=== PATIENT | male | born 1965 | race Caucasian/White ===

== ENCOUNTER 2020-10-31 21:23 | Emergency (ER) | payer OTHER ==
[2020-10-31 22:23] LABS: Basophils % 0.5 % (0-1.3); Lymphocytes % 21.3 % (15.3-44.8); MPV 9.1 fL (7.6-11.3); RBC Red Blood Cell Count 4.48 M/uL (4.33-5.43)
[2020-10-31] MEDS ORDERED: NA CHLORIDE 0.9% 1,000 ML ONE (22:24)
[2020-10-31] MEDS ORDERED: MORPHINE 4 MG/ML SYR ONE (22:24)
[2020-10-31] MEDS ORDERED: ONDANSETRON 4 MG/2 ML VIAL ONE (22:24)
[2020-10-31 22:27] LABS: Urine Blood 2+ (Negative); Urine Glucose Negative (Negative); Urine Protein Negative (Negative); Urine Specific Gravity >=1.030 (1.005-1.030); Urine pH 5.5 (5.0-7.0)
[2020-10-31 22:45] LABS: Albumin 3.8 g/dL (3.4-5.0); Bilirubin Direct 0.1 mg/dL (0-0.2); Bilirubin Total 0.5 mg/dL (0.2-1.0); Potassium 3.7 mmol/L (3.5-5.1)
--- NOTE | 2020-11-01 00:11 | EDPHYS ---
Physician Documentation [facility] Name: Raad Araiza Age: 55 yrs Sex: Male : 1965 Arrival Date: 10/31/2020 Time: 21:24 Bed 14 Private MD: ED Physician Tommy Arechiga HPI: 10/31 22:38 This 55 yrs old Male presents to ER via Ambulatory with complaints of Back mh7 Pain. 22:38 The patient complains of pain in the left flank. The pain radiates to the left lower mh7 abdomen. Onset: The symptoms/episode began/occurred today, at 17:30. Modifying factors: The symptoms are alleviated by nothing. the symptoms are aggravated by nothing. Associated signs and symptoms: Pertinent positives: nausea, Pertinent negatives: diarrhea, dizziness, dysuria, fever, urinary frequency, headache, hematuria, pain radiating to the lower extremities, vomiting. Severity of pain: At its worst the pain was moderate today, in the emergency department the pain has improved moderately. Historical: - Allergies: 21:42 No Known Allergies; ea - PSHx: 21:42 Cholecystectomy; ea - Immunization history:: Adult Immunizations not immunized. - Social history:: Smoking status: Patient denies any tobacco usage or history of. ROS: 22:38 Constitutional: Negative for fever, chills, and weight loss, Eyes: Negative for injury, mh7 pain, redness, and discharge, ENT: Negative for injury, pain, and discharge, Neck: Negative for injury, pain, and swelling, Cardiovascular: Negative for chest pain, palpitations, and edema, Respiratory: Negative for shortness of breath, cough, wheezing, and pleuritic chest pain, : Negative for injury, bleeding, discharge, and swelling, MS/Extremity: Negative for injury and deformity, Skin: Negative for injury, rash, and discoloration, Neuro: Negative for headache, weakness, numbness, tingling, and seizure, Psych: Negative for depression, anxiety, suicide ideation, homicidal ideation, and hallucinations, Allergy/Immunology: Negative for hives, rash, and allergies, Endocrine: Negative for neck swelling, polydipsia, polyuria, polyphagia, and marked weight changes, Hematologic/Lymphatic: Negative for swollen nodes, abnormal bleeding, and unusual bruising. Exam: 22:38 Constitutional: This is a well developed, well nourished patient who is awake, alert, mh7 and in no acute distress. Head/Face: Normocephalic, atraumatic. Eyes: Pupils equal round and reactive to light, extra-ocular motions intact. Lids and lashes normal. Conjunctiva and sclera are non-icteric and not injected. Cornea within normal limits. Periorbital areas with no swelling, redness, or edema. Neck: Trachea midline, no thyromegaly or masses palpated, and no cervical lymphadenopathy. Supple, full range of motion without nuchal rigidity, or vertebral point tenderness. No Meningismus. Chest/axilla: Normal chest wall appearance and motion. Nontender with no deformity. No lesions are appreciated. Cardiovascular: Regular rate and rhythm with a normal S1 and S2. No gallops, murmurs, or rubs. Normal PMI, no JVD. No pulse deficits. Respiratory: Lungs have equal breath sounds bilaterally, clear to auscultation and percussion. No rales, rhonchi or wheezes noted. No increased work of breathing, no retractions or nasal flaring. 22:38 Skin: Warm, dry with normal turgor. Normal color with no rashes, no lesions, and no evidence of cellulitis. MS/ Extremity: Pulses equal, no cyanosis. Neurovascular intact. Full, normal range of motion. Neuro: Awake and alert, GCS 15, oriented to person, place, time, and situation. Cranial nerves II-XII grossly intact. Motor strength 5/5 in all extremities. Sensory grossly intact. Cerebellar exam normal. Normal gait. Psych: Awake, alert, with orientation to person, place and time. Behavior, mood, and affect are within normal limits. 22:38 Abdomen/GI: Inspection: abdomen appears normal, Bowel sounds: normal, in all quadrants, Palpation: mild abdominal tenderness, in the left lower quadrant, mass, is not appreciated, rebound tenderness, is not appreciated, voluntary guarding, is not appreciated, involuntary guarding, is not appreciated, no appreciated organomegaly, Rectal exam: the exam is deferred, because of patient request, Indicators: McBurney's point is not tender, Yarbrough's sign is negative, Rovsing's sign is negative, Obturator sign is negative, Psoas sign is negative, Liver: no appreciated palpable abnormalities, Hernia: not appreciated. 22:38 Back: ROM is normal, normal spinal alignment noted, CVA tenderness, that is mild, is noted on the left, vertebral tenderness, is not appreciated, muscle spasm, is not present. Vital Signs: 21:39 BP 144 / 82; Pulse 81; Resp 18; Temp 97.5; Pulse Ox 98% ; Weight 104.33 kg; Height 6 ea ft. (182.88 cm); Pain 8/10; 11/01 00:15 BP 132 / 60; Pulse 78; Resp 18; Temp 97.8; Pulse Ox 98% ; ea 10/31 21:39 Body Mass Index 31.19 (104.33 kg, 182.88 cm) ea MDM: 00:08 Differential diagnosis: nephrolithiasis, pyelonephritis, UTI, diverticulitis. Data [facility] reviewed: vital signs, nurses notes, old medical records, lab test result(s), CBC, electrolytes, urinalysis, radiologic studies, CT scan. Data interpreted: Pulse oximetry: on room air is 98 %. Interpretation: normal. Counseling: I had a detailed discussion with the patient and/or guardian regarding: the historical points, exam findings, and any diagnostic results supporting the discharge/admit diagnosis, the presence of at least one elevated blood pressure reading (>120/80) during this emergency department visit, lab results, radiology results, the need for outpatient follow up, a urologist, to return to the emergency department if symptoms worsen or persist or if there are any questions or concerns that arise at home. Response to treatment: the patient's symptoms have resolved after treatment, the patient's blood pressure is in an acceptable range, mental status has returned to baseline, the patient no longer shows bradycardia, the patient is not short of breath, the patient is not tachycardic, the patient's pain is gone, the patient's temperature has normalized. 00:10 Patient medically screened. [facility] 10/31 22:02 Order name: Basic Metabolic Panel; Complete Time: 23:15 [facility] 10/31 22:02 Order name: CBC with Diff 7 10/31 22:02 Order name: Hepatic Function; Complete Time: 23:15 7 10/31 22:02 Order name: Lipase; Complete Time: 23:15 [facility] 10/31 22:24 Order name: CBC with Automated Diff EDMS 04/30 22:27 Order name: Urine Dipstick-Ancillary; Complete Time: 23:15 [facility] 10/31 22:02 Order name: IV Saline Lock; Complete Time: 22:15 [facility] 10/31 22:02 Order name: Labs collected and sent; Complete Time: 22:15 [facility] 10/31 22:02 Order name: Urine Dipstick-Ancillary (obtain specimen); Complete Time: 22:36 [facility] 10/31 22:02 Order name: CT Stone Protocol [facility] Administered Medications: 10/31 22:15 Drug: NS 0.9% 1000 ml Route: IV; Rate: 1000 ml; Site: right antecubital; ea 23:23 Follow up: Response: No adverse reaction; IV Status: Completed infusion; IV Intake: ea 1000ml 22:15 Drug: morphine 4 mg Route: IVP; Site: right antecubital; ea 23:23 Follow up: Response: No adverse reaction; Pain is decreased ea 22:15 Drug: Zofran (Ondansetron) 4 mg Route: IVP; Site: right antecubital; ea 23:23 Follow up: Response: No adverse reaction ea Disposition: 11/01/20 00:10 Discharged to Home. Impression: Ureterolithiasis. - Condition is Stable. - Discharge Instructions: Kidney Stones, Itpn-[id number]. - Prescriptions for Zofran ODT 4 mg Oral tablet,disintegrating - place 1 tablet by TRANSLINGUAL route every 8 hours As needed; 10 tablet. ketorolac 10 mg Oral tablet - take 1 tablet by ORAL route every 8 hours As needed not to exceed 40 mg in 24hrs; 15 tablet. Tylenol- Codeine #3 300-30 mg Oral Tablet - take 2 tablets by ORAL route every 6 hours As needed; 20 tablet. Flomax 0.4 mg Oral Capsule, Sust. Release 24 hr - take 1 capsule by ORAL route once daily 1/2 hour following the same meal each day; 10 capsule. - Medication Reconciliation Form, Thank You Letter, Antibiotic Education, Prescription Opioid Use form. - Follow up: Private Physician; When: 1 - 2 days; Reason: Worsening of condition, Recheck today's complaints, Continuance of care, Re-evaluation by your physician. Follow up: Paul Vergara MD; When: 1 - 2 days; Reason: Worsening of condition, Recheck today's complaints. - Problem is new. - Symptoms have improved. Signatures: Dispatcher [employer] Liliam Cuevas RN RN ea Holmes, Maurice, MD MD mh7 Corrections: (The following items were deleted from the chart) 11/01 00:29 00:10 11/01/2020 00:10 Discharged to Home. Impression: Ureterolithiasis. Condition is ea Stable. Forms are Medication Reconciliation Form, Thank You Letter, Antibiotic Education, Prescription Opioid Use. Follow up: Private Physician; When: 1 - 2 days; Reason: Worsening of condition, Recheck today's complaints, Continuance of care, Re-evaluation by your physician. Follow up: Paul Vergara; When: 1 - 2 days; Reason: Worsening of condition, Recheck today's complaints. Problem is new. Symptoms have improved. mh7
--- NOTE | 2020-11-01 00:11 | ER ---
Nurse's Notes [facility] Name: Raad Araiza Age: 55 yrs Sex: Male : 1965 Arrival Date: 10/31/2020 Time: 21:24 Bed 14 Private MD: Diagnosis: Ureterolithiasis Presentation: 10/31 21:39 Chief complaint: Patient states: Reports lower back pain that started today states the ea pain was both in his lower back and lower abdomen. Coronavirus screen: At this time, the client does not indicate any symptoms associated with coronavirus-19. Ebola Screen: No symptoms or risks identified at this time. Initial Sepsis Screen: Does the patient meet any 2 criteria? No. Patient's initial sepsis screen is negative. Does the patient have a suspected source of infection? No. Patient's initial sepsis screen is negative. Risk Assessment: Do you want to hurt yourself or someone else? Patient reports no desire to harm self or others. Onset of symptoms was October 31, 2020. 21:39 Method Of Arrival: Ambulatory ea 21:39 Acuity: JANICE 3 ea Historical: - Allergies: 21:42 No Known Allergies; ea - PSHx: 21:42 Cholecystectomy; ea - Immunization history:: Adult Immunizations not immunized. - Social history:: Smoking status: Patient denies any tobacco usage or history of. Screenin:41 Abuse screen: Denies threats or abuse. Nutritional screening: No deficits noted. ea Tuberculosis screening: No symptoms or risk factors identified. Fall Risk None identified. Assessment: 21:47 General: Appears in no apparent distress. comfortable, Behavior is calm, cooperative, ca1 appropriate for age. Pain: Complains of pain in left low back Pain currently is 8 out of 10 on a pain scale. Pain began 1700 today Is continuous. Neuro: Level of Consciousness is awake, alert, obeys commands, Oriented to person, place, time, situation. Cardiovascular: Heart tones S1 S2 present Capillary refill < 3 seconds. Respiratory: Airway is patent Respiratory effort is even, unlabored, Respiratory pattern is regular, symmetrical, Breath sounds are clear bilaterally. GI: Abdomen is round non-distended, Bowel sounds present X 4 quads. Abd is soft and non tender X 4 quads. : Urine is cloudy. EENT: No signs and/or symptoms were reported regarding the EENT system. Derm: Skin is intact, is healthy with good turgor, Skin is pink, warm \T\ dry. Musculoskeletal: Circulation, motion, and sensation intact. Capillary refill < 3 seconds. 22:00 Reassessment: Patient and/or family updated on plan of care and expected duration. Pain ea level reassessed. Patient is alert, oriented x 3, equal unlabored respirations, skin warm/dry/pink. 23:23 Reassessment: Patient and/or family updated on plan of care and expected duration. Pain ea level reassessed. Pt resting with eyes closed respirations even and unlabored. 11/01 00:28 Reassessment: Patient and/or family updated on plan of care and expected duration. Pain ea level reassessed. Patient is alert, oriented x 3, equal unlabored respirations, skin warm/dry/pink. Discharge instruction given to patient verbalized the understanding of instruction. Pt left ED ambulatory tolerating well. Vital Signs: 10/31 21:39 BP 144 / 82; Pulse 81; Resp 18; Temp 97.5; Pulse Ox 98% ; Weight 104.33 kg; Height 6 ea ft. (182.88 cm); Pain 8/10; 11/01 00:15 BP 132 / 60; Pulse 78; Resp 18; Temp 97.8; Pulse Ox 98% ; ea 04 21:39 Body Mass Index 31.19 (104.33 kg, 182.88 cm) ea ED Course: 10/31 21:24 Patient arrived in ED. am4 21:41 Triage completed. ea 21:47 Norma Lyons, RN is Primary Nurse. ca1 21:47 Arm band placed on right wrist. ca1 21:47 Patient has correct armband on for positive identification. Bed in low position. Call ca1 light in reach. Side rails up X 1. Pulse ox on. NIBP on. Warm blanket given. 21:48 Tommy Arechiga MD is Attending Physician. 7 22:15 Inserted saline lock: 20 gauge in right antecubital area, using aseptic technique. dh4 Blood collected. 23:08 CT Stone Protocol In Process Unspecified. EDMS 11/01 00:09 Paul Vergara MD is Referral Physician. mh7 00:17 No provider procedures requiring assistance completed. IV discontinued, intact, ea bleeding controlled, No redness/swelling at site. Pressure dressing applied. Administered Medications: 10/31 22:15 Drug: NS 0.9% 1000 ml Route: IV; Rate: 1000 ml; Site: right antecubital; ea 23:23 Follow up: Response: No adverse reaction; IV Status: Completed infusion; IV Intake: ea 1000ml 22:15 Drug: morphine 4 mg Route: IVP; Site: right antecubital; ea 23:23 Follow up: Response: No adverse reaction; Pain is decreased ea 22:15 Drug: Zofran (Ondansetron) 4 mg Route: IVP; Site: right antecubital; ea 23:23 Follow up: Response: No adverse reaction ea Intake: 23:23 IV: 1000ml; Total: 1000ml. ea Outcome: 11/01 00:10 Discharge ordered by . [facility] 00:17 Discharge instructions given to patient, family, Instructed on discharge instructions, ea follow up and referral plans. medication usage, Demonstrated understanding of instructions, follow-up care, medications, Prescriptions given X 4. 00:27 Discharged to home ambulatory, with family. ea 00:27 Condition: stable 00:29 Patient left the ED. ea Signatures: Dispatcher [employer] EDMS Liliam Talamantes RN RN ea Acob, Cheryl, RN RN [facility] Nash Nguyen 4 Tommy Arechiga MD MD [facility] Fani [facility]
[2020-11-01 00:44] VITALS: O2SAT 98
[2020-11-01 00:45] VITALS: BP 132/60; TEMP 97.8
--- NOTE | 2020-11-01 20:57 | RAD REPORT ---
EXAM DESCRIPTION: CT - Stone Protocol - 11/01/2020 7:00 am CLINICAL HISTORY: Flank pain;Abd pain COMPARISON: None Available. TECHNIQUE: CT of the abdomen and pelvis without IV contrast. Evaluation of the solid organs and vasc ulature is suboptimal due to lack of IV contrast. This exam was performed according to our department al dose-optimization program, which includes automated exposure control, adjustment of the mA and/or kV according to patient size and/or use of iterative reconstruction technique. FINDINGS: Lung Bases: The visualized lung bases are clear. Bones: Mild degenerative endplate spondylosis and facet arthropathy. Abdomen: Liver: The liver has normal size and decreased density. Gallbladder: Prior cholecystectomy. Spleen, Pancreas, and Adrenal Glands: The spleen, pancreas, and adrenal glands are unremarkable. Kidneys: There is a 0.3 cm obstructing calculus in the proximal left ureter producing mild left hydro nephrosis. Inferior pole 2.7 cm renal cyst. No right-sided hydronephrosis. Vasculature: Aortoiliac atherosclerosis. IVC is unremarkable. Stomach: The stomach and duodenum have normal course. Other: No free intraperitoneal air. No free fluid or lymphadenopathy. Tiny fat-containing umbilic al hernia. Pelvis: Bladder: Urinary bladder is unremarkable. Bowel: No dilated loops of large or small bowel. Scattered diverticula of the colon. Appendix: Normal appendix. Pelvis: Enlarged prostate. IMPRESSION: 1. There is a 0.3 cm obstructing calculus in the proximal left ureter producing mild l eft hydronephrosis. 2. Hepatic steatosis. 3. Enlarged prostate. 4. Diverticulosis without evidence of acute diverticulitis. Electronically signed by: Zack Maddox 10/31/2020 11:30 PM CDT Due to temporary technical issues with the PACS/Fluency reporting system, reports are being signed by the in house radiologists without review as a courtesy to insure prompt reporting. The interpreting radiologist is fully responsible for the content of the report.
== END 2020-11-01 00:29 | disposition home or self-care (01) ==
LOC: ER 21:23
DX: N20.1 Calculus of ureter (principal)
CPT/HCPCS: 96361; 85025; 80048; 36415; 80076; 81003; 83690; 76377; 74176; 96375; 96374; 99284; J7030; J2405

== ENCOUNTER 2021-10-20 09:29 | Emergency (ER) | payer OTHER ==
--- OUTSIDE RECORDS SUMMARY | 2021-10-20 09:31 | XMS REPORT | Continuity of Care Document ---
:1965 Author Organization [facility] t Address [address] [place] [address] [address] [place] [address] Care Team Providers Name Role Phone IVY Attending Clinician Unavailable Problems This patient has no known problems. Allergies, Adverse Reactions, Alerts This patient has no known allergies or adverse reactions. Medications This patient has no known medications. Procedures This patient has no known procedures. Encounters Start End Encounter Admission Attending Care Care Encounter Source Date/Time Date/Time Type Type Clinicians Facility Department ID 2021-04-14 2021-04-14 Outpatient [facility] [id number] [place] 00:00:00 00:00:[address] 2021-04-14 2021-04-14 Outpatient IV[facility], [facility] [id number] [place] 00:00:00 00:00:[id number] Results This patient has no known results.
--- NOTE | 2021-10-20 10:53 | RAD REPORT ---
EXAM DESCRIPTION: RAD - Chest Single View - 10/20/2021 10:48 am CLINICAL HISTORY: CHEST PAIN Chest pain. COMPARISON: Chest Single View dated 02/09/2019; CHEST PA AND LAT 2 VIEW dated 10/21/2012 FINDINGS: Portable technique limits examination quality. The lungs are grossly clear. The heart is normal in size. No displaced fractures. IMPRESSION: No acute intrathoracic process suspected.
[2021-10-20 11:15] LABS: Absolute Lymphocytes (CBC) 0.8 K/uL (0.7-4.9); Hematocrit 42.5 % (39.6-49.0); Lymphocytes % 20.7 % (15.3-44.8); RBC Red Blood Cell Count 4.39 M/uL (4.33-5.43)
[2021-10-20 11:25] LABS: Protime INR 0.95
[2021-10-20 11:36] LABS: Albumin 3.7 g/dL (3.4-5.0); Bilirubin Direct 0.2 mg/dL (0-0.2); Bilirubin Total 0.5 mg/dL (0.2-1.0); Potassium 4.3 mmol/L (3.5-5.1); Protein, Total 7.3 g/dL (6.4-8.2); Troponin High Sensitivity 4.5 pg/mL (<58.9)
[2021-10-20] MEDS ORDERED: MECLIZINE HCL 12.5 MG TAB ONE (11:44)
--- NOTE | 2021-10-20 13:35 | EDPHYS ---
Physician Documentation [facility] Name: Raad Araiza Age: 56 yrs Sex: Male : 1965 Arrival Date: 10/20/2021 Time: 09:30 Bed 20 Private MD: Justin Draper H ED Physician Shayy Vilchis HPI: 10/20 10:58 This 56 yrs old Male presents to ER via Ambulatory with complaints of Chest Pain. pm1 10:58 The patient or guardian reports chest pain that is located primarily in the right pm1 lateral anterior chest. Onset: 5 day(s) ago. The pain does not radiate. The chest pain is described as sharp. Duration: The patient or guardian reports a single episode. Modifying factors: The symptoms are alleviated by Heating pad and stretching right arm above his head. Severity of pain: in the emergency department the pain has improved. The patient has not experienced similar symptoms in the past. The patient has been recently seen by a physician: with similar presenting complaints, Patient was seen by his company's physician and had a chest x-ray. Has not had chest x-ray results given to him yet. Patient presenting to the ER today due to chest pain ongoing for 5 days and improved with stretching arm and heating pad. Patient reports symptoms of dizziness onset this morning.. Historical: - Allergies: 10:04 No Known Allergies; iw - Home Meds: 10:04 fenofibrate 135 mg oral once daily [Active]; omeprazole 40 mg Oral cpDR 1 cap once iw daily [Active]; escitalopram oxalate 20 mg oral tab 1 tab once daily [Active]; - PMHx: 10:04 high cholesterol; Anxiety; acid reflux; iw - PSHx: 10:04 knee; Cholecystectomy; iw - Immunization history:: Client reports receiving the 2nd dose of the Covid vaccine. - Social history:: Smoking status: Patient denies any tobacco usage or history of. Smoking status: Patient reports use of chewing tobacco. ROS: 10:58 Constitutional: Negative for fever, chills, and weight loss. pm1 10:58 Respiratory: Negative for shortness of breath, cough, wheezing, and pleuritic chest pain, Abdomen/GI: Negative for abdominal pain, nausea, vomiting, diarrhea, and constipation, Back: Negative for injury and pain, MS/Extremity: Negative for injury and deformity, Skin: Negative for injury, rash, and discoloration. 10:58 Cardiovascular: Positive for chest pain, Negative for edema, orthopnea, palpitations. 10:58 Neuro: Positive for dizziness, Negative for headache, numbness, tingling, weakness. Exam: 10:58 Constitutional: This is a well developed, well nourished patient who is awake, alert, pm1 and in no acute distress. Head/Face: Normocephalic, atraumatic. Chest/axilla: Normal chest wall appearance and motion. Nontender with no deformity. No lesions are appreciated. Cardiovascular: Regular rate and rhythm with a normal S1 and S2. No gallops, murmurs, or rubs. Normal PMI, no JVD. No pulse deficits. Respiratory: Lungs have equal breath sounds bilaterally, clear to auscultation and percussion. No rales, rhonchi or wheezes noted. No increased work of breathing, no retractions or nasal flaring. Abdomen/GI: Soft, non-tender, with normal bowel sounds. No distension or tympany. No guarding or rebound. No evidence of tenderness throughout. Skin: Warm, dry with normal turgor. Normal color with no rashes, no lesions, and no evidence of cellulitis. MS/ Extremity: Pulses equal, no cyanosis. Neurovascular intact. Full, normal range of motion. 10:58 Eyes: Pupils: no acute changes, Extraocular movements: no acute changes, Conjunctiva: normal, Corneas: no acute changes, Nystagmus: Present with left quinones gaze and reproduces symptoms of spinning. 10:58 Neuro: Orientation: is normal, Mentation: is normal, Cranial nerves: CN II- XII are normal as tested, Cerebellar function: no acute changes, normal finger to nose testing, Motor: moves all fours, strength is 5/5 in all extremities, Sensation: no obvious gross deficits. Vital Signs: 10:02 BP 139 / 96; Pulse 73; Resp 18; Temp 97.5; Pulse Ox 99% on R/A; Weight 102.06 kg (M); iw Height 6 ft. 0 in. (182.88 cm); 12:00 BP 137 / 84; Pulse 61; Resp 14; Pulse Ox 98% on R/A; vg1 12:30 BP 133 / 84; Pulse 62; Resp 18; Pulse Ox 98% on R/A; vg1 10:02 Body Mass Index 30.52 (102.06 kg, 182.88 cm) iw MDM: 10:47 Patient medically screened. pm1 13:33 Data reviewed: vital signs. Data interpreted: Pulse oximetry: on room air is 98 %. pm1 Interpretation: normal. Counseling: I had a detailed discussion with the patient and/or guardian regarding: the historical points, exam findings, and any diagnostic results supporting the discharge/admit diagnosis, lab results, radiology results, the need for outpatient follow up, to return to the emergency department if symptoms worsen or persist or if there are any questions or concerns that arise at home. 10/20 10:58 Order name: Basic Metabolic Panel; Complete Time: 11:47 pm10/20 10:58 Order name: CBC with Diff; Complete Time: 11:31 pm10/20 10:58 Order name: LFT's; Complete Time: 11:47 pm10/20 10:58 Order name: Magnesium; Complete Time: 11:47 pm10/20 10:58 Order name: NT PRO-BNP; Complete Time: 11:47 pm10/20 10:58 Order name: PT-INR; Complete Time: 11:31 pm10/20 10:11 Order name: CXR XRAY; Complete Time: 11:31 iw 10/20 10:58 Order name: Troponin HS; Complete Time: 11:47 pm10/20 10:58 Order name: EKG; Complete Time: 10:59 pm10/20 10:58 Order name: Cardiac monitoring; Complete Time: 11: pm10/20 10:58 Order name: EKG - Nurse/Tech; Complete Time: 11:06 pm10/20 10:58 Order name: IV Saline Lock; Complete Time: 11: pm10/20 10:58 Order name: Labs collected and sent; Complete Time: 11:06 pm10/20 10:58 Order name: O2 Per Protocol; Complete Time: 11:06 pm10/20 10:58 Order name: O2 Sat Monitoring; Complete Time: 11:06 pm1 Administered Medications: 11:44 Drug: Meclizine 50 mg Route: PO; vg1 13:17 Follow up: Response: No adverse reaction; Marked relief of symptoms vg1 Disposition Summary: 10/20/21 13:34 Discharge Ordered Location: Home pm1 Problem: new pm1 Symptoms: have improved pm1 Condition: Stable pm1 Diagnosis - Chest pain, unspecified pm1 - Benign paroxysmal vertigo pm1 Followup: pm1 - With: Emergency Department - When: As needed - Reason: Worsening of condition Followup: pm1 - With: Private Physician - When: 2 - 3 days - Reason: Recheck today's complaints, Continuance of care, Re-evaluation by your physician Followup: pm1 - With: Lb Neville MD - When: 2 - 3 days - Reason: Recheck today's complaints, Continuance of care, Re-evaluation by your physician Discharge Instructions: - Discharge Summary Sheet pm1 - Benign Positional Vertigo pm1 - Nonspecific Chest Pain, Adult pm1 Forms: - Medication Reconciliation Form pm1 - Thank You Letter pm1 - Antibiotic Education pm1 - Prescription Opioid Use pm1 Prescriptions: - Meclizine 25 mg Oral Tablet - take 1 tablet by ORAL route every 8 hours As needed; 30 tablet; Refills: 0, pm1 Product Selection Permitted Addendum: 10/22/2021 18:35 Co-signature as Attending Physician, Shayy boudreaux a2 Signatures: Dispatcher [employer] Thelma Newberry, RN Sadi Lea, APPRENTICE PATTERN MAKER APPRENTICE PATTERN MAKER pm1 Shayy Vilchis MD MD ma2 Tresa Humphries RN RN vg1
--- NOTE | 2021-10-20 13:35 | ER ---
Nurse's Notes [facility] Name: Raad Araiza Age: 56 yrs Sex: Male : 1965 Arrival Date: 10/20/2021 Time: 09:30 Bed 20 Private MD: Justin Draper H Diagnosis: Chest pain, unspecified;Benign paroxysmal vertigo Presentation: 10/20 10:02 Chief complaint: Patient states: Tuesday night had a major pain 10/10 on right side of iw chest, has gotten better but it's still bothering him, had a CXR done yesterday , this morning he woke up and had a hard time focusing visually, then the room started spinning and he vomited and the spinning has resolved. Coronavirus screen: Client presents with at least one sign or symptom that may indicate coronavirus-19. Ebola Screen: Patient negative for fever greater than or equal to 101.5 degrees Fahrenheit, and additional compatible Ebola Virus Disease symptoms Patient denies exposure to infectious person. Patient denies travel to an Ebola-affected area in the 21 days before illness onset. No symptoms or risks identified at this time. Initial Sepsis Screen: Does the patient meet any 2 criteria? No. Patient's initial sepsis screen is negative. Does the patient have a suspected source of infection? No. Patient's initial sepsis screen is negative. Risk Assessment: Do you want to hurt yourself or someone else? Patient reports no desire to harm self or others. Onset of symptoms was October 16, 2021. 10:02 Method Of Arrival: Ambulatory iw 10:02 Acuity: JANICE 3 iw Historical: - Allergies: 10:04 No Known Allergies; iw - Home Meds: 10:04 fenofibrate 135 mg oral once daily [Active]; omeprazole 40 mg Oral cpDR 1 cap once iw daily [Active]; escitalopram oxalate 20 mg oral tab 1 tab once daily [Active]; - PMHx: 10:04 high cholesterol; Anxiety; acid reflux; iw - PSHx: 10:04 knee; Cholecystectomy; iw - Immunization history:: Client reports receiving the 2nd dose of the Covid vaccine. - Social history:: Smoking status: Patient denies any tobacco usage or history of. Smoking status: Patient reports use of chewing tobacco. Screenin:08 Abuse screen: Denies threats or abuse. Nutritional screening: No deficits noted. vg1 Tuberculosis screening: No symptoms or risk factors identified. Fall Risk No fall in past 12 months (0 pts). No secondary diagnosis (0 pts). IV access (20 points). Ambulatory Aid- None/Bed Rest/Nurse Assist (0 pts). Gait- Normal/Bed Rest/Wheelchair (0 pts) Mental Status- Oriented to own ability (0 pts). Total Davis Fall Scale indicates No Risk (0-24 pts). Assessment: 11:00 General: Appears in no apparent distress. comfortable, Behavior is calm, cooperative. vg1 Pain: Complains of pain in chest Pain does not radiate. Pain currently is 0 out of 10 on a pain scale. Pain began 2-3 days ago. Neuro: Level of Consciousness is awake, alert, obeys commands, Oriented to person, place, time, situation, Home Appliance Installer are equal bilaterally Moves all extremities. Gait is steady, Speech is normal, Facial symmetry appears normal, Reports blurred vision dizziness. Cardiovascular: Patient's skin is warm and dry. Respiratory: Airway is patent Respiratory effort is even, unlabored. GI: Reports nausea, vomiting. : No signs and/or symptoms were reported regarding the genitourinary system. EENT: No signs and/or symptoms were reported regarding the EENT system. Derm: Skin is intact, is healthy with good turgor. Musculoskeletal: Circulation, motion, and sensation intact. 12:30 Reassessment: Patient appears in no apparent distress at this time. Patient and/or vg1 family updated on plan of care and expected duration. Pain level reassessed. Patient is alert, oriented x 3, equal unlabored respirations, skin warm/dry/pink. Stated "I dont feel lightheaded anymore"; provider notified. Patient states feeling better. Vital Signs: 10:02 BP 139 / 96; Pulse 73; Resp 18; Temp 97.5; Pulse Ox 99% on R/A; Weight 102.06 kg (M); iw Height 6 ft. 0 in. (182.88 cm); 12:00 BP 137 / 84; Pulse 61; Resp 14; Pulse Ox 98% on R/A; vg1 12:30 BP 133 / 84; Pulse 62; Resp 18; Pulse Ox 98% on R/A; vg1 10:02 Body Mass Index 30.52 (102.06 kg, 182.88 cm) ED Course: 09:30 Patient arrived in ED. mr 09:30 Justin Draper DO is Private Physician. mr 10:04 Triage completed. iw 10:06 Arm band placed on. iw 10:47 Sadi Amezcua NP is PHCP. pm1 10:47 Shayy Vilchis MD is Attending Physician. pm1 10:50 CXR XRAY In Process Unspecified. EDMS 10:51 Tresa Humphries, RN is Primary Nurse. vg1 11:06 Initial lab(s) drawn, by me, sent to lab. Inserted saline lock: 20 gauge in right vg1 antecubital area, using aseptic technique. Blood collected. Patient maintains SpO2 saturation greater than 95% on room air. 11:08 Patient has correct armband on for positive identification. Bed in low position. Call vg1 light in reach. Side rails up X 1. Adult w/ patient. monitoring coordinator on. Pulse ox on. NIBP on. 13:35 Lb Neville MD is Referral Physician. pm1 13:52 No provider procedures requiring assistance completed. IV discontinued, intact, vg1 bleeding controlled, No redness/swelling at site. Pressure dressing applied. Administered Medications: 11:44 Drug: Meclizine 50 mg Route: PO; vg1 13:17 Follow up: Response: No adverse reaction; Marked relief of symptoms vg1 Outcome: 13:34 Discharge ordered by . pm1 13:52 Discharged to home ambulatory, with family. vg1 13:52 Condition: good 13:52 Discharge instructions given to patient, Instructed on discharge instructions, follow up and referral plans. medication usage, Demonstrated understanding of instructions, follow-up care, medications, Prescriptions given X 1. 13:53 Patient left the ED. vg1 Signatures: Dispatcher [employer] CRISTIANAMD Charu Rubi mr Thelma Onofre RN RN iw Sadi Amezcua NP QUILLER HAND pm1 Tresa Humphries RN RN vg1
[2021-10-20 16:57] VITALS: TEMP 97.5
[2021-10-20 16:59] VITALS: O2SAT 98
[2021-10-20 17:00] VITALS: BP 133/84
--- NOTE | 2021-10-21 08:10 | EKG ---
Test Date: 2021-10-20 Test Time: 10:42:51 Data Warehousing Manager: STEW MEASUREMENT RESULTS: Intervals: Rate: 66 [place]: 160 QRSD: 94 QT: 406 QTc: 425 [place]: P: 19 [place]: 160 QRS: 31 T: 27 INTERPRETIVE STATEMENTS: Normal sinus rhythm Normal ECG Compared to ECG 02/09/2019 12:42:45 No significant changes Electronically Signed On 10-21-21 08:07:09 CDT by Jed Robins
== END 2021-10-20 13:53 | disposition home or self-care (01) ==
LOC: ER 09:29
DX: R07.9 Chest pain, unspecified (principal); H81.10 Benign paroxysmal vertigo, unspecified ear; E78.00 Pure hypercholesterolemia, unspecified; F41.9 Anxiety disorder, unspecified; F17.220 Nicotine dependence, chewing tobacco, uncomplicated
CPT/HCPCS: 93005; 85025; 80048; 36415; 83735; 85610; 80076; 84484; 83880; 71045; 99285; J8597

== ENCOUNTER 2024-09-28 07:18 | Day surgery (SDC) | payer OTHER ==
--- NOTE | 2024-09-24 11:59 | EKG ---
Test Date: 2024-09-24 Test Time: 11:22:32 Strategic Accounts Manager: MARLEN MEASUREMENT RESULTS: Intervals: Rate: 56 [place]: 184 QRSD: 100 QT: 412 QTc: 397 [place]: P: 58 LA: 184 QRS: 55 T: 44 INTERPRETIVE STATEMENTS: Sinus bradycardia Otherwise normal ECG Compared to ECG 10/20/2021 10:42:51 Sinus rhythm no longer present Electronically Signed On 09-24-24 11:59:00 CDT by Dieter Banks
[2024-09-24 12:04] LABS: Absolute Eosinophils 0.1 K/uL (0-0.5); Absolute Lymphocytes (CBC) 1.6 K/uL (0.7-4.9); Absolute Monocytes 0.3 K/uL (0.1-1.3); Absolute Neutrophil 1.7 K/uL (1.8-8.0); Basophils % 0.5 % (0-1.3); Eosinophils % 3.2 % (0-4.4); Hematocrit 40.7 % (39.6-49.0); Hemoglobin 14.3 g/dL (13.6-17.9); Lymphocytes % 43.7 % (15.3-44.8); MCH 33.8 pg (27.0-35.0); MCHC 35.1 g/dL (32.0-36.0); MCV 96.4 fL (80-100); MPV 9.1 fL (7.6-11.3); Neutrophils % 44.6 % (41.7-73.7); Nucleated Red Blood Cells % 0.1 % (0-0); Platelets 167 thou/uL (152-406); RBC Red Blood Cell Count 4.22 M/uL (4.33-5.43); Red Cell Distribution Width 13.8 % (12.1-15.2)
[2024-09-24 12:18] LABS: Anion Gap 7.2 mEq/L (5.0-15.0); Potassium 4.2 mEq/L (3.5-5.1)
[2024-09-28] MEDS: Ringers Lactate 1,000 ML IV ONE (07:40)
[2024-09-28] MEDS ORDERED: OXYMETAZOLINE HCL 0.05% 30ML NAS ONE (08:41)
[2024-09-28] MEDS ORDERED: LIDOCAINE HCL/EPINEPHRINE 20 ML MDV ONE (08:42)
[2024-09-28] MEDS ORDERED: FENTANYL CITR 100 MCG/2 ML ONE (08:48)
[2024-09-28] MEDS ORDERED: LIDOCAINE 1% MPF 5 ML VIAL ONE (08:48)
[2024-09-28] MEDS ORDERED: MIDAZOLAM HCL 2 MG/2 ML INJ ONE (08:48)
[2024-09-28] MEDS ORDERED: propofoL 200 MG/20 ML VIAL IV ONE (08:48)
[2024-09-28] MEDS ORDERED: ROCURONIUM 50 MG/5 ML VIAL IV ONE (08:49)
[2024-09-28] MEDS ORDERED: dexAMETHasone 10 MG/ML VIAL ONE (08:49)
[2024-09-28] MEDS: EPINEPHRINE 1 MG/ML VIAL ONE (09:44)
[2024-09-28] MEDS ORDERED: NEOSTIGMINE 1 MG/ML -10 ML VIAL ONE (09:48)
[2024-09-28] MEDS ORDERED: GLYCOPYRROLATE 0.2 MG/ML SYR ONE (09:48)
--- NOTE | 2024-09-28 10:05 | P.OP ---
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 A Briseida BurSportsBeep laryngoscope was used with associated 15 degree rigid telescope to perform a direct laryngoscopy. The hard and soft palate, uvula, posterior pharyngeal wall, base of tongue, vallecula, epiglottis and true and false vocal folds all appeared unremarkable. The tip of the scope was placed into the left piriform sinus and was suspended from the Lama stand. Photodocumentation was obtained. There were several small submucosal round lesions measuring 1 to 2 mm in size. The most prominent of these was on the anterior lateral wall of the left piriform sinus. This mass was grasped with a laryngeal alligator and a curved and angled scissors were used to incise through the mucosa and the area was removed. There was oozing from the site and pledgets were placed to provide pressure on the area of bleeding. The laryngoscope was then repositioned for visualization of the right piriform sinus. The right piriform sinus had similar findings with multiple 1 to 2 mm round smooth submucosal masses. The most prominent of these was removed using a laryngeal alligator with curved scissors. Epinephrine soaked pledget and a Ray- Elizabeth were placed within the piriform sinus to apply pressure to control the mucosal oozing. On reinspection of the specimens, the left side appeared most consistent with a fragment of mucosa and it was difficult to appreciate the underlying mass. The laryngoscope was repositioned for revisualization of the left piriform sinus. Overall the mucosa of the piriform sinus had some areas of redundancy and floppy nature with mild residual oozing from the biopsy site and it was difficult to definitively grasp the nodule due to visualization. Given the overall benign appearance of the findings in conjunction with prior biopsy performed approximately 6 years ago demonstrating lymphoid hyperplasia and squamous mucos a, decision was made to forego additional significant dissection or removal of additional tissue. The laryngoscope and tooth guard were removed and the patient was returned to care of anesthesia for awakening extubation and transportation to the recovery room which proceeded without complication.
[2024-09-28] MEDS: HYDROCODONE/APAP 10/325 TAB ONE (11:20)
[2024-09-28 12:29] VITALS: BP 142/82; TEMP 97.3; O2SAT 100
== END 2024-09-28 11:57 | disposition home or self-care (01) ==
LOC: OR 07:18
PROVIDERS: ATTEND Otolaryngology
PROC: 0CBM8ZX Excision of Pharynx, Via Natural or Artificial Opening Endoscopic, Diagnostic (ICD-10-PCS; principal; 2024-09-28 08:30)
DX: D38.0 Neoplasm of uncertain behavior of larynx (principal)
CPT/HCPCS: 31536; 93005; 85025; 80048; 36415; 88305; J2704; J2710; J2003; J2250; J3010; J1100; J0171; J7120